=== PATIENT | male | born 1995 | race Caucasian/White ===

== ENCOUNTER 2016-11-04 11:40 | Emergency (ER) | payer BC ==
[2016-11-04 12:27] LABS: HEMOGLOBIN 16.3 gm/dl (14.0-17.5); RED BLOOD COUNT 5.46 M/UL (4.20-5.50); WHITE BLOOD COUNT 6.4 K/UL (4.5-11.0)
[2016-11-04 12:42] LABS: BUN/CREATININE RATIO 13 (0-10)
== END 2016-11-04 13:05 | disposition home or self-care (01) ==
LOC: ER1 11:40
PROVIDERS: Physician Assistant Medical
DX: T81.4XXA Infection following a procedure, initial encounter (principal); L08.9 Local infection of the skin and subcutaneous tissue, unspecified
CPT/HCPCS: 36415; 80048; 85025; 86140; 87070; 87205; 99283